=== PATIENT | male | born 1965 | race American Indian/Alaskan Native ===

== ENCOUNTER 2016-10-20 11:10 | Outpatient (CLI) | payer OTHER ==
[2016-10-20 13:18] LABS: Blood Urea Nitrogen 19 mg/dL (9-20)
[2016-10-20] MEDS ORDERED: NACL ONE (14:21)
--- NOTE | 2016-10-20 15:37 | Cat Scan Report ---
CT scan of abdomen and pelvis without and with contrast injection: History: Lower abdominal pain. Findings: Normal lung bases. No pleural or pericardial effusion. Normal liver spleen pancreas and gallbladder. Normal adrenals. There is 3 mm, 2 mm and one millimeter nonobstructing calculus right kidney. There is a 4 mm calculus noted at the UP junction There is 2 mm nonobstructing calculus left kidney. Normal bladder. No free intraperitoneal fluid or air. No evidence of adenopathy. Grossly normal aorta. No evidence of appendicitis. Gaseous colon with stool in colon. No evidence of diverticulitis. Impression: Nonobstructing calculi right and left kidney. 4 mm obstructing calculus right UP junction.
== END 2016-10-20 11:11 | disposition home or self-care (01) ==
LOC: CT 11:10 → US 11:10
PROVIDERS: ATTEND General Practice
DX: N20.0 Calculus of kidney (principal)
CPT/HCPCS: 36415; 74178; 82565; 84520; Q9967